=== PATIENT | male | born 1960 | race Caucasian/White ===

== ENCOUNTER 2017-10-06 18:41 | Inpatient (IN) | payer OTHER, MEDICAID ==
[2017-10-07 03:03] LABS: ADD MAN DIFF? NO
[2017-10-07 03:06] LABS: WHITE BLOOD COUNT 11.8 10^3/ul (4.8-10.8)
[2017-10-07 03:06] LABS: ABNORMAL IP MESSAGE 1; BASOPHILS % 0.3 % (0.0-2.0); EOSINOPHILS % 0.2 % (0.0-7.0); HEMATOCRIT 25.1 % (42.0-52.0); HEMOGLOBIN 8.5 g/dl (14.0-18.0); LYMPHOCYTES # 0.9 10^3/ul (0.8-2.9); LYMPHOCYTES % 7.5 % (15.0-51.0); MEAN CORPUSCULAR HEMOGLOBIN 33.5 pg (29.0-33.0); MEAN CORPUSCULAR HGB CONC 33.9 g/dl (32.0-37.0); MEAN CORPUSCULAR VOLUME 98.8 fl (82.0-101.0); MEAN PLATELET VOLUME 11.1 fl (7.4-10.4); MONOCYTE # 1.6 10^3/ul (0.3-0.9); MONOCYTES % 13.1 % (0.0-11.0); NEUTROPHIL # 9.2 10^3/ul (1.6-7.5); NEUTROPHILS % 77.9 % (39.0-77.0); PLATELET COUNT 173 10^3/UL (140-415); POSITIVE DIFF @See below; RED BLOOD COUNT 2.54 10^6/ul (4.70-6.10); RED CELL DISTRIBUTION WIDTH 26.8 % (11.5-14.5)
[2017-10-07 03:27] LABS: ALANINE AMINOTRANSFERASE 34 IU/L (13-69); ALKALINE PHOSPHATASE 262 IU/L (42-121); ANION GAP 19 (8-16); ASPARTATE AMINO TRANSFERASE 147 IU/L (15-46); BILIRUBIN,INDIRECT 2.4 mg/dl (0-1.1); BILIRUBIN,TOTAL 8.1 mg/dl (0.2-1.3); BLOOD UREA NITROGEN 7 mg/dl (7-20); CALCIUM 6.7 mg/dl (8.4-10.2); CARBON DIOXIDE 23 mmol/L (21-31); CHLORIDE 100 mmol/L (97-110); CREATININE 1.15 mg/dl (0.61-1.24); GLUCOSE 116 mg/dl (70-220); LIPASE 131 U/L (23-300); POTASSIUM 3.2 mmol/L (3.5-5.1); SODIUM 139 mmol/L (135-144)
[2017-10-07 03:28] LABS: INR 1.57; PROTIME 19.1 Sec (11.9-14.9); PT RATIO 1.5
[2017-10-07 03:33] LABS: PARTIAL THROMBOPLASTIN TIME 36.5 Sec (25.0-35.0)
[2017-10-07 03:39] LABS: TROPONIN-I < 0.012 ng/ml (0.00-0.12)
[2017-10-07] MEDS ORDERED: ALBUTEROL/IPRATROPIUM (NEB) 3 ML AMP HHN (07:00)
[2017-10-07] MEDS: POTASSIUM CHLORIDE (SR) 20 MEQ TAB PO (07:45)
[2017-10-07 08:42] LABS: IRON 27 ug/dl (35-150)
[2017-10-07 08:51] LABS: % IRON SATURATION 14 % SAT (22-52); TOTAL IRON BINDING CAPACITY 197 ug/dl (241-421)
[2017-10-07] MEDS: PROPRANOLOL 10 MG TAB PO ×3 (09:00→13:00)
[2017-10-07] MEDS: FUROSEMIDE 20 MG INJ IV (09:00)
[2017-10-07] MEDS: LIDOCAINE 1% (MPF) 5 ML VIAL (10:03)
[2017-10-07] MEDS: CEFTRIAXONE 1 GM/50 ML (PMX) 50 ML IVPB ×2 (10:33→20:30)
[2017-10-07] MEDS: FAMOTIDINE 20 MG INJ IV ×2 (10:37→20:28)
[2017-10-07 15:23] LABS: FERRITIN 59.2 ng/ml (11.1-264.0)
[2017-10-07] MEDS ORDERED: ACETAMINOPHEN 325 MG TAB PO (18:30)
[2017-10-07 19:04] LABS: AMMONIA 82 umol/l (9-30)
[2017-10-07] MEDS: NACL 0.9% 3 ML SYG IV (20:25)
[2017-10-07] MEDS: PROPRANOLOL 20 MG TAB PO (21:00)
[2017-10-07] MEDS ORDERED: POTASSIUM CHLORIDE (SR) 20 MEQ TAB PO (21:39)
[2017-10-07] MEDS: morphine 2 MG INJ IV (21:48)
[2017-10-08] MEDS: LORAZEPAM 2 MG INJ IV ×4 (00:08→15:07)
[2017-10-08] MEDS: morphine 2 MG INJ IV (01:55)
[2017-10-08] MEDS: CHLORDIAZEPOXIDE 25 MG CAP PO ×3 (03:59→21:20)
[2017-10-08] MEDS: NACL 0.9% 3 ML SYG IV (04:00)
[2017-10-08] MEDS: D5W-0.45 NACL + KCL 20 MEQ 1,000 ML IV ×2 (04:00→16:41)
[2017-10-08] MEDS: PANTOPRAZOLE 40 MG INJ IV ×2 (05:03→17:58)
[2017-10-08 06:07] LABS: ADD MAN DIFF? NO
[2017-10-08 06:13] LABS: WHITE BLOOD COUNT 9.6 10^3/ul (4.8-10.8)
[2017-10-08 06:13] LABS: ABNORMAL IP MESSAGE 1; BASOPHIL # 0.1 10^3/ul (0.0-0.1); BASOPHILS % 0.5 % (0.0-2.0); EOSINOPHILS # 0.1 10^3/ul (0.0-0.5); EOSINOPHILS % 1.5 % (0.0-7.0); HEMATOCRIT 22.8 % (42.0-52.0); HEMOGLOBIN 7.7 g/dl (14.0-18.0); LYMPHOCYTES # 1.6 10^3/ul (0.8-2.9); LYMPHOCYTES % 16.6 % (15.0-51.0); MEAN CORPUSCULAR HEMOGLOBIN 33.8 pg (29.0-33.0); MEAN CORPUSCULAR HGB CONC 33.8 g/dl (32.0-37.0); MEAN PLATELET VOLUME 11.5 fl (7.4-10.4); MONOCYTE # 1.1 10^3/ul (0.3-0.9); MONOCYTES % 11.4 % (0.0-11.0); NEUTROPHIL # 6.6 10^3/ul (1.6-7.5); NEUTROPHILS % 69.6 % (39.0-77.0); PLATELET COUNT 148 10^3/UL (140-415); POSITIVE DIFF @See below; RED BLOOD COUNT 2.28 10^6/ul (4.70-6.10); RED CELL DISTRIBUTION WIDTH 25.9 % (11.5-14.5)
[2017-10-08 06:42] LABS: ALANINE AMINOTRANSFERASE 32 IU/L (13-69); ALBUMIN 2.1 g/dl (3.3-4.9); ALBUMIN/GLOBULIN RATIO 0.52; ALKALINE PHOSPHATASE 166 IU/L (42-121); ANION GAP 14 (8-16); ASPARTATE AMINO TRANSFERASE 94 IU/L (15-46); BILIRUBIN,INDIRECT 1.7 mg/dl (0-1.1); BLOOD UREA NITROGEN 13 mg/dl (7-20); CALCIUM 6.3 mg/dl (8.4-10.2); CARBON DIOXIDE 22 mmol/L (21-31); CHLORIDE 102 mmol/L (97-110); CREATININE 1.16 mg/dl (0.61-1.24); GLUCOSE 89 mg/dl (70-220); PHOSPHORUS 2.8 mg/dl (2.5-4.9); SODIUM 135 mmol/L (135-144); TOTAL PROTEIN 6.1 g/dl (6.1-8.1)
[2017-10-08 06:53] LABS: AMMONIA 46 umol/l (9-30)
[2017-10-08 06:56] LABS: MAGNESIUM 0.8 mg/dl (1.7-2.5); POTASSIUM 2.7 mmol/L (3.5-5.1)
[2017-10-08 06:57] LABS: ADD UMIC YES; UR ASCORBIC ACID 40 mg/dL (NEGATIVE); UR BILIRUBIN (Dip) 2+ mg/dL (NEGATIVE); UR BLOOD (Dip) 1+ mg/dL (NEGATIVE); UR CLARITY CLOUDY (CLEAR); UR COLOR RED (YELLOW); UR GLUCOSE (Dip) 1+ mg/dL (NEGATIVE); UR HYALINE CAST FEW /HPF (NONE SEEN); UR KETONES (Dip) NEGATIVE (NEGATIVE); UR LEUKOCYTE ESTERASE (Dip) NEGATIVE Leu/ul (NEGATIVE); UR MUCUS MANY /HPF (NONE SEEN); UR NITRITE (Dip) NEGATIVE (NEGATIVE); UR NONSQUAMOUS EPITHELIAL CELL 5 /HPF (NONE SEEN); UR RBC 6 /HPF (0-5); UR SPECIFIC GRAVITY (Dip) 1.031 (1.003-1.030); UR SQUAMOUS EPITHELIAL CELL FEW /HPF (FEW); UR TOTAL PROTEIN (Dip) 2+ mg/dl (NEGATIVE); UR UROBILINOGEN (Dip) 2+ mg/dL (NEGATIVE); UR WBC 1 /HPF (0-5)
[2017-10-08] MEDS: CEFTRIAXONE 1 GM/50 ML (PMX) 50 ML IVPB ×2 (08:11→21:20)
[2017-10-08] MEDS: SODIUM CHLORIDE 0.45% IVPB ×2 (09:51→14:59)
[2017-10-08] MEDS: POTASSIUM CHLORIDE IVPB ×2 (09:51→14:59)
[2017-10-08] MEDS: PROPRANOLOL 10 MG TAB PO ×3 (10:00→21:00)
[2017-10-08] MEDS: THIAMINE 100 MG TAB PO (10:03)
[2017-10-08] MEDS: FAMOTIDINE 20 MG INJ IV ×2 (10:03→21:20)
[2017-10-08] MEDS: FUROSEMIDE 20 MG INJ IV (10:03)
[2017-10-08] MEDS: MAGNESIUM SULFATE 4 GM/100 ML 100 ML IVPB (10:19)
[2017-10-08 20:18] LABS: AMPHETAMINE/METHAMPHETAMINE Negative (NEGATIVE); BARBITURATES Negative (NEGATIVE); BENZODIAZEPINES Negative (NEGATIVE); CANNABINOIDS Negative (NEGATIVE); COCAINE Negative (NEGATIVE); OPIATES Positive (NEGATIVE)
[2017-10-08 20:30] LABS: OCCULT BLOOD STOOL NEGATIVE (NEGATIVE)
[2017-10-09] MEDS: PANTOPRAZOLE 40 MG INJ IV ×2 (05:21→17:58)
[2017-10-09 06:03] LABS: ADD MAN DIFF? NO
[2017-10-09 06:09] LABS: WHITE BLOOD COUNT 7.4 10^3/ul (4.8-10.8)
[2017-10-09 06:10] LABS: ABNORMAL IP MESSAGE 1; BASOPHIL # 0.1 10^3/ul (0.0-0.1); BASOPHILS % 0.7 % (0.0-2.0); EOSINOPHILS # 0.1 10^3/ul (0.0-0.5); EOSINOPHILS % 1.8 % (0.0-7.0); HEMATOCRIT 23.5 % (42.0-52.0); LYMPHOCYTES # 0.7 10^3/ul (0.8-2.9); LYMPHOCYTES % 9.9 % (15.0-51.0); MEAN CORPUSCULAR HEMOGLOBIN 34.8 pg (29.0-33.0); MEAN CORPUSCULAR VOLUME 102.2 fl (82.0-101.0); MEAN PLATELET VOLUME 11.2 fl (7.4-10.4); MONOCYTE # 1.1 10^3/ul (0.3-0.9); MONOCYTES % 14.9 % (0.0-11.0); NEUTROPHIL # 5.3 10^3/ul (1.6-7.5); NEUTROPHILS % 72.3 % (39.0-77.0); PLATELET COUNT 142 10^3/UL (140-415); POSITIVE DIFF @See below; RED CELL DISTRIBUTION WIDTH 25.7 % (11.5-14.5)
[2017-10-09] MEDS: D5W-0.45 NACL + KCL 20 MEQ 1,000 ML IV ×3 (06:40→19:44)
[2017-10-09 06:54] LABS: ANION GAP 14 (8-16); BLOOD UREA NITROGEN 13 mg/dl (7-20); CARBON DIOXIDE 23 mmol/L (21-31); CHLORIDE 104 mmol/L (97-110); CREATININE 0.96 mg/dl (0.61-1.24); GLUCOSE 91 mg/dl (70-220); MAGNESIUM 1.8 mg/dl (1.7-2.5); SODIUM 138 mmol/L (135-144)
[2017-10-09] MEDS: CEFTRIAXONE 1 GM/50 ML (PMX) 50 ML IVPB ×2 (09:05→21:17)
[2017-10-09] MEDS: PROPRANOLOL 10 MG TAB PO ×3 (09:06→21:15)
[2017-10-09] MEDS: THIAMINE 100 MG TAB PO (09:06)
[2017-10-09] MEDS: FAMOTIDINE 20 MG INJ IV ×2 (09:06→21:17)
[2017-10-09] MEDS: CHLORDIAZEPOXIDE 25 MG CAP PO ×3 (09:06→21:17)
[2017-10-09] MEDS: FUROSEMIDE 20 MG INJ IV (09:06)
[2017-10-09 10:26] LABS: OCCULT BLOOD STOOL NEGATIVE (NEGATIVE)
[2017-10-09] MEDS: MULTIVITAMINS 10 ML, THIAMINE 100 MG, FOLIC ACID 1 MG in SOD CHLORIDE 0.9% 1,000 ML IVPB (11:21)
[2017-10-09] MEDS: LACTULOSE 30ML CUP PO ×2 (13:38→17:58)
[2017-10-09] MEDS: POTASSIUM CHLORIDE (SR) 20 MEQ TAB PO ×2 (13:38→17:58)
[2017-10-09] MEDS: LORAZEPAM 2 MG INJ IV (16:13)
[2017-10-09 19:02] LABS: OCCULT BLOOD STOOL NEGATIVE (NEGATIVE)
[2017-10-10] MEDS: LACTULOSE 30ML CUP PO ×6 (00:27→23:50)
[2017-10-10 05:50] LABS: ADD MAN DIFF? NO
[2017-10-10] MEDS: PANTOPRAZOLE 40 MG INJ IV ×2 (05:53→17:44)
[2017-10-10 06:05] LABS: WHITE BLOOD COUNT 6.2 10^3/ul (4.8-10.8)
[2017-10-10 06:05] LABS: ABNORMAL IP MESSAGE 1; BASOPHIL # 0.1 10^3/ul (0.0-0.1); BASOPHILS % 0.8 % (0.0-2.0); EOSINOPHILS # 0.1 10^3/ul (0.0-0.5); EOSINOPHILS % 2.3 % (0.0-7.0); HEMATOCRIT 23.4 % (42.0-52.0); LYMPHOCYTES # 0.6 10^3/ul (0.8-2.9); LYMPHOCYTES % 10.2 % (15.0-51.0); MEAN CORPUSCULAR HEMOGLOBIN 35.1 pg (29.0-33.0); MEAN CORPUSCULAR HGB CONC 34.2 g/dl (32.0-37.0); MEAN CORPUSCULAR VOLUME 102.6 fl (82.0-101.0); MEAN PLATELET VOLUME 11.3 fl (7.4-10.4); MONOCYTE # 1.1 10^3/ul (0.3-0.9); MONOCYTES % 18.3 % (0.0-11.0); NEUTROPHIL # 4.2 10^3/ul (1.6-7.5); NEUTROPHILS % 67.3 % (39.0-77.0); PLATELET COUNT 145 10^3/UL (140-415); POSITIVE DIFF @See below; RED BLOOD COUNT 2.28 10^6/ul (4.70-6.10); RED CELL DISTRIBUTION WIDTH 25.2 % (11.5-14.5)
[2017-10-10 07:07] LABS: ANION GAP 14 (8-16); BLOOD UREA NITROGEN 10 mg/dl (7-20); CALCIUM 6.1 mg/dl (8.4-10.2); CARBON DIOXIDE 22 mmol/L (21-31); CHLORIDE 108 mmol/L (97-110); CREATININE 0.86 mg/dl (0.61-1.24); GLUCOSE 106 mg/dl (70-220); SODIUM 141 mmol/L (135-144)
[2017-10-10] MEDS: D5W-0.45 NACL + KCL 20 MEQ 1,000 ML IV ×2 (09:20→19:41)
[2017-10-10] MEDS: CEFTRIAXONE 1 GM/50 ML (PMX) 50 ML IVPB ×2 (09:38→21:04)
[2017-10-10] MEDS: THIAMINE 100 MG TAB PO (09:38)
[2017-10-10] MEDS: MULTIVITAMINS 10 ML, THIAMINE 100 MG, FOLIC ACID 1 MG in SOD CHLORIDE 0.9% 1,000 ML IVPB (09:38)
[2017-10-10] MEDS: CHLORDIAZEPOXIDE 25 MG CAP PO ×3 (09:38→21:05)
[2017-10-10] MEDS: FAMOTIDINE 20 MG INJ IV ×2 (09:41→21:04)
[2017-10-10] MEDS: PROPRANOLOL 10 MG TAB PO ×3 (09:41→21:00)
[2017-10-10] MEDS: FUROSEMIDE 20 MG INJ IV (09:41)
[2017-10-10] MEDS: LORAZEPAM 2 MG INJ IV ×2 (11:08→15:22)
[2017-10-10] MEDS: INFLUENZA VIRUS VACCINE 0.5 ML SYG IM* (13:08)
[2017-10-10 16:06] LABS: RETICULOCYTE COUNT # 0.114 X10^6 (0.020-0.110); RETICULOCYTE COUNT % 4.3 % (0.5-1.5)
[2017-10-10 16:06] LABS: RETICULOCYTE RBC 2.68
[2017-10-10 17:15] LABS: FERRITIN 70.2 ng/ml (11.1-264.0)
[2017-10-10 17:47] LABS: FOLATE > 20.0 ng/ml (2.8-20.0)
[2017-10-10] MEDS: RIFAXIMIN 550 MG TAB PO (21:05)
[2017-10-11] MEDS: PANTOPRAZOLE 40 MG INJ IV ×2 (05:28→17:28)
[2017-10-11] MEDS: LACTULOSE 30ML CUP PO ×3 (05:28→17:28)
[2017-10-11 07:11] LABS: OCCULT BLOOD STOOL NEGATIVE (NEGATIVE)
[2017-10-11] MEDS: PROPRANOLOL 10 MG TAB PO ×3 (08:38→21:00)
[2017-10-11] MEDS: RIFAXIMIN 550 MG TAB PO ×2 (08:38→21:53)
[2017-10-11] MEDS: CHLORDIAZEPOXIDE 25 MG CAP PO ×3 (08:38→21:53)
[2017-10-11] MEDS: THIAMINE 100 MG TAB PO (08:38)
[2017-10-11] MEDS: FUROSEMIDE 20 MG INJ IV (08:39)
[2017-10-11] MEDS: CEFTRIAXONE 1 GM/50 ML (PMX) 50 ML IVPB ×2 (08:47→21:50)
[2017-10-11] MEDS: MULTIVITAMINS 10 ML, THIAMINE 100 MG, FOLIC ACID 1 MG in SOD CHLORIDE 0.9% 1,000 ML IVPB (10:03)
[2017-10-11] MEDS: D5W-0.45 NACL + KCL 20 MEQ 1,000 ML IV ×2 (12:00→19:23)
[2017-10-11] MEDS ORDERED: POTASSIUM CHLORIDE 30 MEQ in DEXTROSE 5% 250 ML IVPB (18:00)
[2017-10-11] MEDS: POTASSIUM CHLORIDE 50 ML IVPB ×3 (19:45→23:40)
[2017-10-11] MEDS: LORAZEPAM 2 MG INJ IV (21:54)
[2017-10-12] MEDS: D5W-0.45 NACL + KCL 20 MEQ 1,000 ML IV ×2 (01:20→14:40)
[2017-10-12] MEDS: LORAZEPAM 2 MG INJ IV ×2 (03:51→12:17)
[2017-10-12] MEDS: LACTULOSE 30ML CUP PO ×5 (06:00→23:15)
[2017-10-12] MEDS: PANTOPRAZOLE 40 MG INJ IV ×2 (06:16→18:17)
[2017-10-12 06:30] LABS: ADD MAN DIFF? NO
[2017-10-12 06:40] LABS: WHITE BLOOD COUNT 8.4 10^3/ul (4.8-10.8)
[2017-10-12 06:40] LABS: ABNORMAL IP MESSAGE 1; BASOPHIL # 0.1 10^3/ul (0.0-0.1); BASOPHILS % 0.7 % (0.0-2.0); EOSINOPHILS # 0.2 10^3/ul (0.0-0.5); EOSINOPHILS % 1.9 % (0.0-7.0); HEMATOCRIT 26.3 % (42.0-52.0); HEMOGLOBIN 8.5 g/dl (14.0-18.0); LYMPHOCYTES # 0.9 10^3/ul (0.8-2.9); LYMPHOCYTES % 10.6 % (15.0-51.0); MEAN CORPUSCULAR HEMOGLOBIN 34.1 pg (29.0-33.0); MEAN CORPUSCULAR HGB CONC 32.3 g/dl (32.0-37.0); MEAN CORPUSCULAR VOLUME 105.6 fl (82.0-101.0); MEAN PLATELET VOLUME 10.7 fl (7.4-10.4); MONOCYTE # 1.4 10^3/ul (0.3-0.9); MONOCYTES % 16.7 % (0.0-11.0); NEUTROPHIL # 5.8 10^3/ul (1.6-7.5); NEUTROPHILS % 69.5 % (39.0-77.0); PLATELET COUNT 189 10^3/UL (140-415); POSITIVE DIFF @See below; RED BLOOD COUNT 2.49 10^6/ul (4.70-6.10); RED CELL DISTRIBUTION WIDTH 24.6 % (11.5-14.5)
[2017-10-12 07:19] LABS: ANION GAP 12 (8-16); BLOOD UREA NITROGEN 11 mg/dl (7-20); CALCIUM 6.7 mg/dl (8.4-10.2); CARBON DIOXIDE 20 mmol/L (21-31); CHLORIDE 112 mmol/L (97-110); CREATININE 0.92 mg/dl (0.61-1.24); GLUCOSE 113 mg/dl (70-220); MAGNESIUM 1.5 mg/dl (1.7-2.5); POTASSIUM 3.2 mmol/L (3.5-5.1); SODIUM 141 mmol/L (135-144)
[2017-10-12 07:40] LABS: AMMONIA 49 umol/l (9-30)
[2017-10-12] MEDS: MULTIVITAMINS 10 ML, THIAMINE 100 MG, FOLIC ACID 1 MG in SOD CHLORIDE 0.9% 1,000 ML IVPB (09:03)
[2017-10-12] MEDS: RIFAXIMIN 550 MG TAB PO ×2 (09:04→20:42)
[2017-10-12] MEDS: PROPRANOLOL 10 MG TAB PO ×3 (09:04→20:43)
[2017-10-12] MEDS: THIAMINE 100 MG TAB PO (09:04)
[2017-10-12] MEDS: CHLORDIAZEPOXIDE 25 MG CAP PO ×3 (09:04→20:43)
[2017-10-12] MEDS: FUROSEMIDE 20 MG INJ IV (09:05)
[2017-10-12] MEDS: CEFTRIAXONE 1 GM/50 ML (PMX) 50 ML IVPB ×2 (09:05→22:09)
[2017-10-12] MEDS ORDERED: POTASSIUM CHLORIDE 40 MEQ in SOD CHLORIDE 0.9% 150 ML IVPB (16:00)
[2017-10-12] MEDS: POTASSIUM CHLORIDE 50 ML IVPB ×4 (16:40→20:49)
[2017-10-13] MEDS: D5W-0.45 NACL + KCL 20 MEQ 1,000 ML IV ×2 (01:14→04:00)
[2017-10-13] MEDS: PANTOPRAZOLE 40 MG INJ IV ×2 (05:07→19:17)
[2017-10-13] MEDS: LACTULOSE 30ML CUP PO ×3 (05:07→19:17)
[2017-10-13] MEDS: CEFTRIAXONE 1 GM/50 ML (PMX) 50 ML IVPB ×2 (08:56→20:45)
[2017-10-13] MEDS: SPIRONOLACTONE 50 MG TAB NGT (08:56)
[2017-10-13] MEDS: FUROSEMIDE 20 MG INJ IV (08:56)
[2017-10-13] MEDS: FUROSEMIDE 20 MG TAB GTB (08:57)
[2017-10-13] MEDS: THIAMINE 100 MG TAB PO (08:57)
[2017-10-13] MEDS: RIFAXIMIN 550 MG TAB PO ×2 (08:57→20:53)
[2017-10-13] MEDS: PROPRANOLOL 10 MG TAB PO ×3 (08:57→20:53)
[2017-10-13] MEDS: CHLORDIAZEPOXIDE 25 MG CAP PO ×3 (08:58→20:55)
[2017-10-13] MEDS: MULTIVITAMINS 10 ML, THIAMINE 100 MG, FOLIC ACID 1 MG in SOD CHLORIDE 0.9% 1,000 ML IVPB (08:59)
[2017-10-13 10:01] LABS: ADD MAN DIFF? NO
[2017-10-13 10:05] LABS: ABNORMAL IP MESSAGE 1; BASOPHIL # 0.1 10^3/ul (0.0-0.1); BASOPHILS % 0.6 % (0.0-2.0); EOSINOPHILS # 0.1 10^3/ul (0.0-0.5); EOSINOPHILS % 1.4 % (0.0-7.0); HEMATOCRIT 26.5 % (42.0-52.0); HEMOGLOBIN 8.7 g/dl (14.0-18.0); LYMPHOCYTES # 1.1 10^3/ul (0.8-2.9); LYMPHOCYTES % 11.7 % (15.0-51.0); MEAN CORPUSCULAR HEMOGLOBIN 33.9 pg (29.0-33.0); MEAN CORPUSCULAR HGB CONC 32.8 g/dl (32.0-37.0); MEAN CORPUSCULAR VOLUME 103.1 fl (82.0-101.0); MEAN PLATELET VOLUME 10.7 fl (7.4-10.4); MONOCYTE # 1.3 10^3/ul (0.3-0.9); NEUTROPHIL # 6.7 10^3/ul (1.6-7.5); NEUTROPHILS % 71.6 % (39.0-77.0); PLATELET COUNT 193 10^3/UL (140-415); POSITIVE DIFF @See below; RED BLOOD COUNT 2.57 10^6/ul (4.70-6.10); RED CELL DISTRIBUTION WIDTH 23.9 % (11.5-14.5)
[2017-10-13 10:05] LABS: WHITE BLOOD COUNT 9.3 10^3/ul (4.8-10.8)
[2017-10-13 10:25] LABS: AMMONIA 23 umol/l (9-30)
[2017-10-13 10:27] LABS: ANION GAP 13 (8-16); BLOOD UREA NITROGEN 13 mg/dl (7-20); CALCIUM 7.2 mg/dl (8.4-10.2); CARBON DIOXIDE 19 mmol/L (21-31); CHLORIDE 114 mmol/L (97-110); CREATININE 0.97 mg/dl (0.61-1.24); GLUCOSE 137 mg/dl (70-220); POTASSIUM 3.1 mmol/L (3.5-5.1); SODIUM 143 mmol/L (135-144)
[2017-10-13] MEDS ORDERED: POTASSIUM CHLORIDE 30 MEQ in SOD CHLORIDE 0.9% 150 ML IVPB (12:00)
[2017-10-13] MEDS: D5W-0.45 NACL + KCL 40 MEQ 1,000 ML IV (12:00)
[2017-10-13] MEDS: POTASSIUM CHLORIDE 50 ML IVPB ×3 (12:22→15:47)
[2017-10-13] MEDS ORDERED: COLLAGENASE 30 GM TUBE TOP (13:00)
[2017-10-13] MEDS: MAGNESIUM SULFATE 4 GM/100 ML 100 ML IVPB (15:48)
[2017-10-14] MEDS: D5W-0.45 NACL + KCL 40 MEQ 1,000 ML IV ×3 (00:02→21:20)
[2017-10-14] MEDS: PANTOPRAZOLE 40 MG INJ IV ×2 (06:13→18:25)
[2017-10-14] MEDS: LACTULOSE 30ML CUP PO ×4 (06:13→18:25)
[2017-10-14 06:19] LABS: ADD MAN DIFF? NO
[2017-10-14 06:23] LABS: WHITE BLOOD COUNT 8.7 10^3/ul (4.8-10.8)
[2017-10-14 06:23] LABS: ABNORMAL IP MESSAGE 1; BASOPHIL # 0.1 10^3/ul (0.0-0.1); BASOPHILS % 0.7 % (0.0-2.0); EOSINOPHILS # 0.1 10^3/ul (0.0-0.5); EOSINOPHILS % 1.1 % (0.0-7.0); HEMATOCRIT 26.1 % (42.0-52.0); HEMOGLOBIN 8.7 g/dl (14.0-18.0); LYMPHOCYTES # 0.9 10^3/ul (0.8-2.9); LYMPHOCYTES % 10.8 % (15.0-51.0); MEAN CORPUSCULAR HEMOGLOBIN 34.1 pg (29.0-33.0); MEAN CORPUSCULAR HGB CONC 33.3 g/dl (32.0-37.0); MEAN CORPUSCULAR VOLUME 102.4 fl (82.0-101.0); MEAN PLATELET VOLUME 10.3 fl (7.4-10.4); MONOCYTE # 1.4 10^3/ul (0.3-0.9); MONOCYTES % 15.7 % (0.0-11.0); NEUTROPHIL # 6.2 10^3/ul (1.6-7.5); NEUTROPHILS % 70.9 % (39.0-77.0); PLATELET COUNT 196 10^3/UL (140-415); POSITIVE DIFF @See below; RED BLOOD COUNT 2.55 10^6/ul (4.70-6.10); RED CELL DISTRIBUTION WIDTH 23.5 % (11.5-14.5)
[2017-10-14 06:48] LABS: AMMONIA 22 umol/l (9-30)
[2017-10-14 08:55] LABS: ANION GAP 14 (8-16); BLOOD UREA NITROGEN 13 mg/dl (7-20); CALCIUM 7.6 mg/dl (8.4-10.2); CARBON DIOXIDE 18 mmol/L (21-31); CHLORIDE 118 mmol/L (97-110); CREATININE 0.87 mg/dl (0.61-1.24); GLUCOSE 122 mg/dl (70-220); MAGNESIUM 2.4 mg/dl (1.7-2.5); POTASSIUM 3.5 mmol/L (3.5-5.1); SODIUM 146 mmol/L (135-144)
[2017-10-14] MEDS: MULTIVITAMINS 10 ML, THIAMINE 100 MG, FOLIC ACID 1 MG in SOD CHLORIDE 0.9% 1,000 ML IVPB ×2 (09:00→18:25)
[2017-10-14] MEDS: FUROSEMIDE 20 MG TAB GTB (09:45)
[2017-10-14] MEDS: CEFTRIAXONE 1 GM/50 ML (PMX) 50 ML IVPB (09:46)
[2017-10-14] MEDS: FUROSEMIDE 20 MG INJ IV (09:46)
[2017-10-14] MEDS: SPIRONOLACTONE 50 MG TAB NGT (09:47)
[2017-10-14] MEDS: THIAMINE 100 MG TAB PO (09:48)
[2017-10-14] MEDS: PROPRANOLOL 10 MG TAB PO ×3 (09:48→21:10)
[2017-10-14] MEDS: RIFAXIMIN 550 MG TAB PO ×2 (09:48→21:10)
[2017-10-14] MEDS: CHLORDIAZEPOXIDE 25 MG CAP PO ×2 (09:49→12:26)
[2017-10-14] MEDS: ONDANSETRON 4 MG INJ IV (14:54)
[2017-10-14] MEDS ORDERED: VITAMIN A & D 5 GM OINT PACKET TOP (21:19)
[2017-10-15] MEDS: LACTULOSE 30ML CUP PO ×4 (00:10→17:12)
[2017-10-15] MEDS: D5W-0.45 NACL + KCL 40 MEQ 1,000 ML IV (02:49)
[2017-10-15] MEDS: PANTOPRAZOLE 40 MG INJ IV ×2 (05:42→17:12)
[2017-10-15 05:59] LABS: ADD MAN DIFF? NO
[2017-10-15 06:08] LABS: ABNORMAL IP MESSAGE 1; BASOPHILS % 0.4 % (0.0-2.0); EOSINOPHILS # 0.1 10^3/ul (0.0-0.5); EOSINOPHILS % 0.7 % (0.0-7.0); HEMATOCRIT 24.7 % (42.0-52.0); LYMPHOCYTES # 1.3 10^3/ul (0.8-2.9); MEAN CORPUSCULAR HEMOGLOBIN 34.5 pg (29.0-33.0); MEAN CORPUSCULAR HGB CONC 32.4 g/dl (32.0-37.0); MEAN CORPUSCULAR VOLUME 106.5 fl (82.0-101.0); MEAN PLATELET VOLUME 11.2 fl (7.4-10.4); MONOCYTE # 1.4 10^3/ul (0.3-0.9); MONOCYTES % 13.9 % (0.0-11.0); NEUTROPHILS % 71.1 % (39.0-77.0); PLATELET COUNT 202 10^3/UL (140-415); POSITIVE DIFF @See below; RED BLOOD COUNT 2.32 10^6/ul (4.70-6.10); RED CELL DISTRIBUTION WIDTH 22.9 % (11.5-14.5)
[2017-10-15 06:08] LABS: WHITE BLOOD COUNT 9.8 10^3/ul (4.8-10.8)
[2017-10-15 06:19] LABS: INR 1.61; PROTIME 19.5 Sec (11.9-14.9); PT RATIO 1.5
[2017-10-15 06:20] LABS: PARTIAL THROMBOPLASTIN TIME 41.5 Sec (25.0-35.0)
[2017-10-15 06:49] LABS: ANION GAP 13 (8-16); BLOOD UREA NITROGEN 13 mg/dl (7-20); CALCIUM 7.6 mg/dl (8.4-10.2); CARBON DIOXIDE 17 mmol/L (21-31); CHLORIDE 121 mmol/L (97-110); CREATININE 0.85 mg/dl (0.61-1.24); GLUCOSE 273 mg/dl (70-220); POTASSIUM 4.7 mmol/L (3.5-5.1); SODIUM 146 mmol/L (135-144)
[2017-10-15] MEDS: MULTIVITAMINS 10 ML, THIAMINE 100 MG, FOLIC ACID 1 MG in SOD CHLORIDE 0.9% 1,000 ML IVPB (09:18)
[2017-10-15] MEDS: FUROSEMIDE 20 MG INJ IV (09:19)
[2017-10-15] MEDS: RIFAXIMIN 550 MG TAB PO ×2 (09:19→21:00)
[2017-10-15] MEDS: THIAMINE 100 MG TAB PO (09:19)
[2017-10-15] MEDS: PROPRANOLOL 10 MG TAB PO ×3 (09:19→21:00)
[2017-10-15] MEDS: SPIRONOLACTONE 50 MG TAB NGT (09:20)
[2017-10-16] MEDS: D5W-0.45 NACL + KCL 40 MEQ 1,000 ML IV (03:18)
[2017-10-16] MEDS: LACTULOSE 30ML CUP PO ×4 (06:00→17:08)
[2017-10-16] MEDS: PANTOPRAZOLE 40 MG INJ IV ×2 (06:00→17:08)
[2017-10-16] MEDS ORDERED: SUCCINYLCHOLINE CHLORIDE 100 MG/5 ML SYG IV (07:00)
[2017-10-16] MEDS ORDERED: ETOMIDATE 20 MG INJ (07:00)
[2017-10-16 08:53] LABS: ABNORMAL IP MESSAGE 1; HEMATOCRIT 33.2 % (42.0-52.0); HEMOGLOBIN 10.4 g/dl (14.0-18.0); MEAN CORPUSCULAR HGB CONC 31.3 g/dl (32.0-37.0); MEAN CORPUSCULAR VOLUME 108.5 fl (82.0-101.0); MEAN PLATELET VOLUME 11.2 fl (7.4-10.4); NUCLEATED RED BLOOD CELLS% 0.1 /100WBC (0.0-0.0); PLATELET COUNT 379 10^3/UL (140-415); POSITIVE DIFF @See below; RED BLOOD COUNT 3.06 10^6/ul (4.70-6.10); RED CELL DISTRIBUTION WIDTH 22.3 % (11.5-14.5)
[2017-10-16 08:53] LABS: WHITE BLOOD COUNT 16.7 10^3/ul (4.8-10.8)
[2017-10-16 08:59] LABS: ADD MAN DIFF? YES
[2017-10-16 09:14] LABS: AMMONIA 50 umol/l (9-30)
[2017-10-16 09:15] LABS: ANION GAP 15 (8-16); BLOOD UREA NITROGEN 22 mg/dl (7-20); CALCIUM 8.4 mg/dl (8.4-10.2); CARBON DIOXIDE 17 mmol/L (21-31); CHLORIDE 121 mmol/L (97-110); GLUCOSE 152 mg/dl (70-220); MAGNESIUM 1.9 mg/dl (1.7-2.5); POTASSIUM 4.1 mmol/L (3.5-5.1); SODIUM 149 mmol/L (135-144)
[2017-10-16 09:54] LABS: AADO2 Arterial 602.8 mmHg (7.0-24.0); Allen Test ACCEPTAB; Arterial Base Excess -12.3 mmol/L (-3.0-3); Arterial HCO3 15.8 mmol/L (22.0-26.0); Arterial pCO2 44.1 mmhg (35-45); MODE MASK - NRB; Site Right Radial
[2017-10-16 09:59] LABS: Allen Test ACCEPTAB; Arterial Base Excess -12.4 mmol/L (-3.0-3); Arterial Blood Gas Oxygen Sat 91.5 mmHG (95.0-98.0); Arterial COHb 0.4 % (0.0-3.0); Arterial Fraction of Oxyhgb 90.8 % (93.0-99.0); Arterial HCO3 16.3 mmol/L (22.0-26.0); Arterial MetHb 0.4 % (0.0-1.5); Arterial Total Hemglobin 11.3 g/dl (12.0-18.0); Arterial pCO2 49.3 mmhg (35-45); MODE MASK - NRB; Site Right Radial
[2017-10-16 10:12] LABS: ANISOCYTOSIS 2+ (0-0); BAND NEUTROPHILS % (M) 30 % (0-4); BASOPHIL #M 0.3 10^3/ul (0.0-0.0); BASOPHILS % (M) 2 % (0-2); LYMPHOCYTES #M 1.6 10^3/ul (0.8-2.9); LYMPHOCYTES % (M) 10 % (15-51); MONOCYTE #M 0.5 10^3/ul (0.3-0.9); MONOCYTES % (M) 3 % (0-11); PLATELET ESTIMATE NORMAL; POIKILOCYTOSIS 2+ (0-0); POLYCHROMASIA 1+ (0-0); REACTIVE LYMPHOCYTES #M 0.1 10^3/ul (0.0-0.0); REACTIVE LYMPHOCYTES% (M) 1 % (0-0); SEG NEUT #M 9.9 10^3/ul (1.7-7.5); SEGMENTED NEUTROPHILS (M) % 54 % (39-77); TARGET CELLS 1+ (0-0)
[2017-10-16] MEDS: ALBUMIN HUMAN 25% 100 ML IV ×2 (11:00→15:50)
[2017-10-16] MEDS: SODIUM BICARBONATE (IV ADD) 100 MEQ in DEXTROSE 5% 1,000 ML IV (11:19)
[2017-10-16] MEDS: PIPER-TAZO 3.375 GM IV (PMX) 100 ML IVPB ×2 (12:21→17:08)
[2017-10-16] MEDS: RIFAXIMIN 550 MG TAB PO ×2 (12:24→21:57)
[2017-10-16] MEDS: THIAMINE 100 MG TAB PO (12:24)
[2017-10-16 12:51] LABS: AADO2 Arterial 615.2 mmHg (7.0-24.0); Allen Test ACCEPTAB; Arterial Blood Gas Oxygen Sat 91.2 mmHG (95.0-98.0); Arterial COHb 0.3 % (0.0-3.0); Arterial Fraction of Oxyhgb 90.8 % (93.0-99.0); Arterial HCO3 14.3 mmol/L (22.0-26.0); Arterial MetHb 0.1 % (0.0-1.5); Arterial Total Hemglobin 10.6 g/dl (12.0-18.0); MODE VENT - AC; Site Left Radial
[2017-10-16] MEDS: SOD CHLORIDE 0.9% 1,000 ML IV (12:51)
[2017-10-16] MEDS ORDERED: NORepinephrine 8MG/250 ML (PMX 250 ML IV ×2 (13:00)
[2017-10-16] MEDS: PROPOFOL 100 ML IV ×2 (13:30→19:37)
[2017-10-16] MEDS: LIDOCAINE 1% (MPF) 5 ML VIAL SC (14:40)
[2017-10-16] MEDS: FUROSEMIDE 20 MG INJ IV (17:32)
[2017-10-16 17:38] LABS: ANION GAP 18 (8-16); BLOOD UREA NITROGEN 23 mg/dl (7-20); CALCIUM 8.2 mg/dl (8.4-10.2); CARBON DIOXIDE 15 mmol/L (21-31); CHLORIDE 118 mmol/L (97-110); CREATININE 2.19 mg/dl (0.61-1.24); GLUCOSE 151 mg/dl (70-220); POTASSIUM 3.5 mmol/L (3.5-5.1); SODIUM 147 mmol/L (135-144)
[2017-10-16] MEDS: POTASSIUM CHLORIDE 50 ML IVPB ×2 (19:11→20:47)
[2017-10-16] MEDS: MULTIVITAMINS 10 ML, THIAMINE 100 MG, FOLIC ACID 1 MG in SOD CHLORIDE 0.9% 1,000 ML IVPB (21:57)
[2017-10-17] MEDS: PIPER-TAZO 3.375 GM IV (PMX) 100 ML IVPB ×4 (00:36→18:07)
[2017-10-17] MEDS: LACTULOSE 30ML CUP PO ×4 (00:36→18:06)
[2017-10-17] MEDS: ALBUMIN HUMAN 25% 100 ML IV ×2 (02:38→16:57)
[2017-10-17 04:52] LABS: WHITE BLOOD COUNT 18.5 10^3/ul (4.8-10.8)
[2017-10-17 04:52] LABS: ABNORMAL IP MESSAGE 1; HEMATOCRIT 24.3 % (42.0-52.0); MEAN CORPUSCULAR HEMOGLOBIN 34.3 pg (29.0-33.0); MEAN CORPUSCULAR HGB CONC 32.9 g/dl (32.0-37.0); MEAN CORPUSCULAR VOLUME 104.3 fl (82.0-101.0); NUCLEATED RED BLOOD CELLS% 0.1 /100WBC (0.0-0.0); PLATELET COUNT 259 10^3/UL (140-415); POSITIVE DIFF @See below; RED BLOOD COUNT 2.33 10^6/ul (4.70-6.10); RED CELL DISTRIBUTION WIDTH 22.3 % (11.5-14.5)
[2017-10-17 04:58] LABS: ADD MAN DIFF? YES
[2017-10-17 05:23] LABS: ALANINE AMINOTRANSFERASE 35 IU/L (13-69); ALBUMIN 2.8 g/dl (3.3-4.9); ALBUMIN/GLOBULIN RATIO 0.66; ALKALINE PHOSPHATASE 129 IU/L (42-121); ANION GAP 18 (8-16); ASPARTATE AMINO TRANSFERASE 114 IU/L (15-46); BILIRUBIN,INDIRECT 1.9 mg/dl (0-1.1); BILIRUBIN,TOTAL 9.4 mg/dl (0.2-1.3); BLOOD UREA NITROGEN 26 mg/dl (7-20); CALCIUM 8.1 mg/dl (8.4-10.2); CARBON DIOXIDE 16 mmol/L (21-31); CHLORIDE 118 mmol/L (97-110); CREATININE 2.67 mg/dl (0.61-1.24); GLUCOSE 119 mg/dl (70-220); POTASSIUM 3.6 mmol/L (3.5-5.1); SODIUM 148 mmol/L (135-144)
[2017-10-17] MEDS: PANTOPRAZOLE 40 MG INJ IV ×2 (06:26→18:06)
[2017-10-17 08:01] LABS: ANISOCYTOSIS 1+ (0-0); BAND NEUTROPHILS #M 5.7 10^3/ul (0.0-0.6); BAND NEUTROPHILS % (M) 31 % (0-4); BURR CELLS 2+ (0-0); ERYTHROBLAST% (NRBC) (M) 1 % (0-0); GIANT THROMBO% (M) 2 % (0-0); LYMPHOCYTES #M 1.1 10^3/ul (0.8-2.9); LYMPHOCYTES % (M) 6 % (15-51); MONOCYTES % (M) 11 % (0-11); PLATELET ESTIMATE NORMAL; PLATELET MORPHOLOGY COMMENT @See below; POIKILOCYTOSIS 1+ (0-0); POLYCHROMASIA 1+ (0-0); SEG NEUT #M 10.9 10^3/ul (1.7-7.5); SEGMENTED NEUTROPHILS (M) % 53 % (39-77); TARGET CELLS 2+ (0-0)
[2017-10-17] MEDS: SODIUM BICARBONATE (IV ADD) 100 MEQ in DEXTROSE 5% 1,000 ML IV ×3 (08:08→20:09)
[2017-10-17] MEDS: POTASSIUM CHLORIDE 50 ML IVPB ×2 (08:21→09:54)
[2017-10-17 08:27] LABS: ADD UMIC YES; UR ASCORBIC ACID 40 mg/dL (NEGATIVE); UR BILIRUBIN (Dip) 2+ mg/dL (NEGATIVE); UR BLOOD (Dip) 2+ mg/dL (NEGATIVE); UR CLARITY CLOUDY (CLEAR); UR COLOR AMBER (YELLOW); UR GLUCOSE (Dip) 1+ mg/dL (NEGATIVE); UR HYALINE CAST FEW /HPF (NONE SEEN); UR KETONES (Dip) NEGATIVE (NEGATIVE); UR LEUKOCYTE ESTERASE (Dip) NEGATIVE Leu/ul (NEGATIVE); UR NITRITE (Dip) NEGATIVE (NEGATIVE); UR RBC 4 /HPF (0-5); UR SPECIFIC GRAVITY (Dip) 1.025 (1.003-1.030); UR TOTAL PROTEIN (Dip) 1+ mg/dl (NEGATIVE); UR UROBILINOGEN (Dip) 2+ mg/dL (NEGATIVE); UR WBC 3 /HPF (0-5)
[2017-10-17] MEDS: RIFAXIMIN 550 MG TAB PO ×2 (10:14→21:00)
[2017-10-17] MEDS: THIAMINE 100 MG TAB PO (10:14)
[2017-10-17] MEDS: PROPOFOL 100 ML IV (12:42)
[2017-10-17 14:43] LABS: AADO2 Arterial 119.1 mmHg (7.0-24.0); Allen Test ACCEPTAB; Arterial Base Excess -8.3 mmol/L (-3.0-3); Arterial Blood Gas Oxygen Sat 92.7 mmHG (95.0-98.0); Arterial COHb 0.3 % (0.0-3.0); Arterial Fraction of Oxyhgb 92.2 % (93.0-99.0); Arterial HCO3 15.2 mmol/L (22.0-26.0); Arterial MetHb 0.2 % (0.0-1.5); Arterial pCO2 24.8 mmhg (35-45); Blood Gas PS 10; MODE VENT - CPAP; Site Right Radial
[2017-10-17 14:57] LABS: ANION GAP 21 (8-16); BLOOD UREA NITROGEN 31 mg/dl (7-20); CALCIUM 8.2 mg/dl (8.4-10.2); CARBON DIOXIDE 16 mmol/L (21-31); CHLORIDE 113 mmol/L (97-110); CREATININE 3.22 mg/dl (0.61-1.24); GLUCOSE 150 mg/dl (70-220); POTASSIUM 3.5 mmol/L (3.5-5.1); SODIUM 146 mmol/L (135-144)
[2017-10-17] MEDS: LINEZOLID 600 MG/D5W (PMX) 300 ML IVPB (21:18)
[2017-10-18] MEDS: LACTULOSE 30ML CUP PO ×5 (00:38→23:12)
[2017-10-18] MEDS: PIPER-TAZO 3.375 GM IV (PMX) 100 ML IVPB ×5 (00:50→23:12)
[2017-10-18] MEDS: PANTOPRAZOLE 40 MG INJ IV ×2 (05:32→18:10)
[2017-10-18] MEDS: PROPOFOL 100 ML IV ×3 (05:41→19:01)
[2017-10-18 05:56] LABS: ANION GAP 16 (8-16); BLOOD UREA NITROGEN 28 mg/dl (7-20); CALCIUM 7.9 mg/dl (8.4-10.2); CARBON DIOXIDE 23 mmol/L (21-31); CHLORIDE 103 mmol/L (97-110); CREATININE 3.02 mg/dl (0.61-1.24); GLUCOSE 157 mg/dl (70-220); SODIUM 139 mmol/L (135-144)
[2017-10-18 05:59] LABS: POTASSIUM 2.6 mmol/L (3.5-5.1)
[2017-10-18] MEDS: POTASSIUM CHLORIDE 50 ML IVPB ×6 (06:04→22:33)
[2017-10-18] MEDS: SODIUM BICARBONATE (IV ADD) 100 MEQ in DEXTROSE 5% 1,000 ML IV (07:48)
[2017-10-18] MEDS: THIAMINE 100 MG TAB PO (09:26)
[2017-10-18] MEDS: RIFAXIMIN 550 MG TAB PO ×2 (09:26→20:11)
[2017-10-18] MEDS: LINEZOLID 600 MG/D5W (PMX) 300 ML IVPB ×2 (10:35→20:07)
[2017-10-18] MEDS: ALBUMIN HUMAN 25% 100 ML IV (11:16)
[2017-10-18 12:24] LABS: HAAIG REFLEX REFLEX FILED
[2017-10-18 13:11] LABS: HEPATITIS B SURFACE ANTIGEN NEGATIVE (NEGATIVE)
[2017-10-18 13:29] LABS: HEPATITIS B CORE ANTIBODY NEGATIVE (NEGATIVE); HEPATITIS C VIRAL ANTIBODY NEGATIVE (NEGATIVE)
[2017-10-18] MEDS: MUPIROCIN 2% 22 GM OINT TOP ×2 (14:07→20:12)
[2017-10-18 16:55] LABS: POTASSIUM 3.2 mmol/L (3.5-5.1)
[2017-10-18 18:03] LABS: HEPATITIS B SURFACE ANTIGEN NEGATIVE (NEGATIVE)
[2017-10-18 18:20] LABS: HEPATITIS B CORE ANTIBODY NEGATIVE (NEGATIVE)
[2017-10-18] MEDS: CASPOFUNGIN 70 MG in SOD CHLORIDE 0.9% 250 ML IVPB (19:01)
[2017-10-19] MEDS: PROPOFOL 100 ML IV ×4 (01:30→15:33)
[2017-10-19] MEDS: PIPER-TAZO 3.375 GM IV (PMX) 100 ML IVPB (05:55)
[2017-10-19] MEDS: LACTULOSE 30ML CUP PO ×4 (05:55→23:27)
[2017-10-19] MEDS: PANTOPRAZOLE 40 MG INJ IV ×2 (05:55→17:14)
[2017-10-19 06:01] LABS: HEMATOCRIT 23.4 % (42.0-52.0); HEMOGLOBIN 7.8 g/dl (14.0-18.0); MEAN CORPUSCULAR HEMOGLOBIN 33.8 pg (29.0-33.0); MEAN CORPUSCULAR HGB CONC 33.3 g/dl (32.0-37.0); MEAN CORPUSCULAR VOLUME 101.3 fl (82.0-101.0); MEAN PLATELET VOLUME 11.3 fl (7.4-10.4); PLATELET COUNT 153 10^3/UL (140-415); POSITIVE DIFF @See below; RED BLOOD COUNT 2.31 10^6/ul (4.70-6.10); RED CELL DISTRIBUTION WIDTH 21.6 % (11.5-14.5)
[2017-10-19 06:01] LABS: WHITE BLOOD COUNT 16.4 10^3/ul (4.8-10.8)
[2017-10-19 06:08] LABS: ADD MAN DIFF? YES
[2017-10-19 06:41] LABS: ANION GAP 19 (8-16); BLOOD UREA NITROGEN 21 mg/dl (7-20); CALCIUM 7.5 mg/dl (8.4-10.2); CARBON DIOXIDE 23 mmol/L (21-31); CHLORIDE 99 mmol/L (97-110); CREATININE 2.69 mg/dl (0.61-1.24); GLUCOSE 116 mg/dl (70-220); POTASSIUM 3.1 mmol/L (3.5-5.1); SODIUM 138 mmol/L (135-144)
[2017-10-19] MEDS: POTASSIUM CHLORIDE 50 ML IVPB ×3 (06:50→08:57)
[2017-10-19 08:20] LABS: ANISOCYTOSIS 3+ (0-0); BAND NEUTROPHILS #M 2.6 10^3/ul (0.0-0.6); BAND NEUTROPHILS % (M) 16 % (0-4); BASOPHIL #M 0.1 10^3/ul (0.0-0.0); BASOPHILS % (M) 1 % (0-2); EOSINOPHILS % (M) 1 % (0-7); GIANT THROMBO% (M) 1 % (0-0); HYPOCHROMASIA 1+ (0-0); LYMPHOCYTES #M 2.9 10^3/ul (0.8-2.9); LYMPHOCYTES % (M) 18 % (15-51); MONOCYTE #M 0.9 10^3/ul (0.3-0.9); MONOCYTES % (M) 6 % (0-11); PLATELET ESTIMATE NORMAL; POLYCHROMASIA 2+ (0-0); SEG NEUT #M 9.9 10^3/ul (1.7-7.5); SEGMENTED NEUTROPHILS (M) % 58 % (39-77); SMUDGE%M 2 % (0-0)
[2017-10-19 08:29] LABS: AADO2 Arterial 411.2 mmHg (7.0-24.0); Allen Test ACCEPTAB; Arterial Base Excess -1.2 mmol/L (-3.0-3); Arterial Blood Gas Oxygen Sat 88.8 mmHG (95.0-98.0); Arterial COHb 0.3 % (0.0-3.0); Arterial Fraction of Oxyhgb 88.4 % (93.0-99.0); Arterial HCO3 21.9 mmol/L (22.0-26.0); Arterial MetHb 0.1 % (0.0-1.5); Arterial Total Hemglobin 8.5 g/dl (12.0-18.0); Arterial pCO2 30.3 mmhg (35-45); MODE VENT - AC; Site Right Radial
[2017-10-19] MEDS: RIFAXIMIN 550 MG TAB PO ×2 (08:56→20:06)
[2017-10-19] MEDS: THIAMINE 100 MG TAB PO (08:56)
[2017-10-19] MEDS: LINEZOLID 600 MG/D5W (PMX) 300 ML IVPB ×2 (08:56→20:28)
[2017-10-19] MEDS: MUPIROCIN 2% 22 GM OINT TOP ×2 (08:56→20:07)
[2017-10-19] MEDS: CEFEPIME 2GM/50 ML (PMX) 50 ML IVPB (10:52)
[2017-10-19] MEDS: ALBUMIN HUMAN 25% 100 ML IV ×2 (12:13→19:59)
[2017-10-19] MEDS: metroNIDAZOLE 500 MG/NS (PMX) 100 ML IVPB ×2 (14:51→22:10)
[2017-10-19 16:06] LABS: IMMEDIATE SPIN CROSSMATCH 1 2
[2017-10-19] MEDS: CASPOFUNGIN 35 MG in SOD CHLORIDE 0.9% 250 ML IVPB (17:59)
[2017-10-20] MEDS: PROPOFOL 100 ML IV ×2 (00:35→13:11)
[2017-10-20] MEDS: ALBUMIN HUMAN 25% 100 ML IV ×2 (03:23→19:49)
[2017-10-20] MEDS: LACTULOSE 30ML CUP PO ×3 (05:14→17:38)
[2017-10-20] MEDS: metroNIDAZOLE 500 MG/NS (PMX) 100 ML IVPB ×3 (05:14→23:53)
[2017-10-20] MEDS: PANTOPRAZOLE 40 MG INJ IV ×2 (05:18→17:38)
[2017-10-20 05:42] LABS: ADD MAN DIFF? NO
[2017-10-20 05:47] LABS: BASOPHIL # 0.1 10^3/ul (0.0-0.1); BASOPHILS % 0.2 % (0.0-2.0); EOSINOPHILS # 0.1 10^3/ul (0.0-0.5); EOSINOPHILS % 0.4 % (0.0-7.0); HEMATOCRIT 26.3 % (42.0-52.0); HEMOGLOBIN 9.1 g/dl (14.0-18.0); LYMPHOCYTES # 1.2 10^3/ul (0.8-2.9); LYMPHOCYTES % 5.8 % (15.0-51.0); MEAN CORPUSCULAR HEMOGLOBIN 33.1 pg (29.0-33.0); MEAN CORPUSCULAR HGB CONC 34.6 g/dl (32.0-37.0); MEAN CORPUSCULAR VOLUME 95.6 fl (82.0-101.0); MONOCYTES % 4.6 % (0.0-11.0); NEUTROPHIL # 18.7 10^3/ul (1.6-7.5); POSITIVE DIFF @See below; RED BLOOD COUNT 2.75 10^6/ul (4.70-6.10); RED CELL DISTRIBUTION WIDTH 21.9 % (11.5-14.5)
[2017-10-20 05:47] LABS: PLATELET COUNT 121 10^3/UL (140-415); WHITE BLOOD COUNT 21.5 10^3/ul (4.8-10.8)
[2017-10-20 05:48] LABS: PLATELET COUNT 122 10^3/UL (140-415)
[2017-10-20 06:08] LABS: PROTIME 23.2 Sec (11.9-14.9); PT RATIO 1.8
[2017-10-20 06:09] LABS: PARTIAL THROMBOPLASTIN TIME 56.3 Sec (25.0-35.0); THROMBIN TIME 18.3 SEC (13.8-19.1)
[2017-10-20 06:10] LABS: INR 2.06; PROTIME 23.7 Sec (11.9-14.9); PT RATIO 1.9
[2017-10-20 06:34] LABS: ALANINE AMINOTRANSFERASE 25 IU/L (13-69); ALBUMIN/GLOBULIN RATIO 0.73; ALKALINE PHOSPHATASE 101 IU/L (42-121); ANION GAP 22 (8-16); ASPARTATE AMINO TRANSFERASE 81 IU/L (15-46); BILIRUBIN,INDIRECT 1.9 mg/dl (0-1.1); BILIRUBIN,TOTAL 11.2 mg/dl (0.2-1.3); BLOOD UREA NITROGEN 30 mg/dl (7-20); CALCIUM 7.9 mg/dl (8.4-10.2); CARBON DIOXIDE 18 mmol/L (21-31); CHLORIDE 96 mmol/L (97-110); CREATININE 3.79 mg/dl (0.61-1.24); GLUCOSE 104 mg/dl (70-220); SODIUM 134 mmol/L (135-144); TOTAL PROTEIN 7.1 g/dl (6.1-8.1)
[2017-10-20 06:51] LABS: POTASSIUM 2.3 mmol/L (3.5-5.1)
[2017-10-20] MEDS: POTASSIUM CHLORIDE 50 ML IVPB ×4 (06:53→11:01)
[2017-10-20 07:59] LABS: AMMONIA 70 umol/l (9-30)
[2017-10-20 08:09] LABS: Allen Test ACCEPTAB; Arterial Base Excess -6.3 mmol/L (-3.0-3); Arterial Blood Gas Oxygen Sat 86.4 mmHG (95.0-98.0); Arterial COHb 0.3 % (0.0-3.0); Arterial Fraction of Oxyhgb 86.1 % (93.0-99.0); Arterial HCO3 17.4 mmol/L (22.0-26.0); Arterial MetHb 0.1 % (0.0-1.5); Arterial Total Hemglobin 9.8 g/dl (12.0-18.0); Arterial pCO2 28.4 mmhg (35-45); MODE VENT - AC; Site Right Radial
[2017-10-20] MEDS: LINEZOLID 600 MG/D5W (PMX) 300 ML IVPB ×2 (08:57→20:50)
[2017-10-20] MEDS: THIAMINE 100 MG TAB PO (08:57)
[2017-10-20] MEDS: RIFAXIMIN 550 MG TAB PO ×2 (08:57→20:50)
[2017-10-20] MEDS: MUPIROCIN 2% 22 GM OINT TOP ×2 (08:59→20:50)
[2017-10-20] MEDS: CEFEPIME 2GM/50 ML (PMX) 50 ML IVPB (10:28)
[2017-10-20] MEDS: CASPOFUNGIN 35 MG in SOD CHLORIDE 0.9% 250 ML IVPB (17:40)
[2017-10-20] MEDS: PHENYLephrine 20MG IN 250 ML 250 ML IV (20:49)
[2017-10-20 22:47] LABS: HEPATITIS B SURFACE ANTIBODY NEGATIVE (NEGATIVE)
[2017-10-21] MEDS: LACTULOSE 30ML CUP PO ×4 (00:23→17:36)
[2017-10-21] MEDS: PROPOFOL 100 ML IV ×2 (01:30→13:30)
[2017-10-21] MEDS: metroNIDAZOLE 500 MG/NS (PMX) 100 ML IVPB ×3 (05:14→21:16)
[2017-10-21] MEDS: PANTOPRAZOLE 40 MG INJ IV ×2 (05:20→17:36)
[2017-10-21 08:40] LABS: Allen Test ACCEPTAB; Arterial Base Excess -8.3 mmol/L (-3.0-3); Arterial Blood Gas Oxygen Sat 92.7 mmHG (95.0-98.0); Arterial COHb 0.3 % (0.0-3.0); Arterial Fraction of Oxyhgb 92.3 % (93.0-99.0); Arterial HCO3 15.3 mmol/L (22.0-26.0); Arterial MetHb 0.1 % (0.0-1.5); Arterial Total Hemglobin 10.6 g/dl (12.0-18.0); Arterial pCO2 25.8 mmhg (35-45); MODE VENT - AC; Site Right Radial
[2017-10-21] MEDS: LINEZOLID 600 MG/D5W (PMX) 300 ML IVPB (09:06)
[2017-10-21] MEDS: THIAMINE 100 MG TAB PO (09:06)
[2017-10-21] MEDS: RIFAXIMIN 550 MG TAB PO ×2 (09:06→21:17)
[2017-10-21] MEDS: MUPIROCIN 2% 22 GM OINT TOP ×2 (09:07→21:09)
[2017-10-21 09:19] LABS: ADD MAN DIFF? NO
[2017-10-21 09:21] LABS: WHITE BLOOD COUNT 23.9 10^3/ul (4.8-10.8)
[2017-10-21 09:21] LABS: ABNORMAL IP MESSAGE 1; BASOPHILS % 0.2 % (0.0-2.0); EOSINOPHILS % 0.2 % (0.0-7.0); HEMOGLOBIN 9.2 g/dl (14.0-18.0); LYMPHOCYTES # 1.1 10^3/ul (0.8-2.9); LYMPHOCYTES % 4.6 % (15.0-51.0); MEAN CORPUSCULAR HEMOGLOBIN 32.9 pg (29.0-33.0); MEAN CORPUSCULAR HGB CONC 34.1 g/dl (32.0-37.0); MEAN CORPUSCULAR VOLUME 96.4 fl (82.0-101.0); MEAN PLATELET VOLUME 11.4 fl (7.4-10.4); MONOCYTE # 0.8 10^3/ul (0.3-0.9); MONOCYTES % 3.4 % (0.0-11.0); NEUTROPHIL # 21.4 10^3/ul (1.6-7.5); NEUTROPHILS % 89.3 % (39.0-77.0); PLATELET COUNT 121 10^3/UL (140-415); POSITIVE DIFF @See below; RED CELL DISTRIBUTION WIDTH 21.4 % (11.5-14.5)
[2017-10-21] MEDS ORDERED: VANCOMYCIN IV PER PHARMACY XX (09:30)
[2017-10-21] MEDS: PHENYLephrine 20MG IN 250 ML 250 ML IV ×2 (09:31→14:01)
[2017-10-21] MEDS: LEVOFLOXACIN 500MG/D5W (PMX) 100 ML IVPB (09:39)
[2017-10-21 09:40] LABS: AMMONIA 38 umol/l (9-30)
[2017-10-21 09:40] LABS: ANION GAP 24 (8-16); BLOOD UREA NITROGEN 20 mg/dl (7-20); CALCIUM 7.4 mg/dl (8.4-10.2); CARBON DIOXIDE 16 mmol/L (21-31); CHLORIDE 98 mmol/L (97-110); CREATININE 3.09 mg/dl (0.61-1.24); GLUCOSE 94 mg/dl (70-220); SODIUM 135 mmol/L (135-144)
[2017-10-21 09:47] LABS: POTASSIUM 2.6 mmol/L (3.5-5.1)
[2017-10-21] MEDS: POTASSIUM CHLORIDE 50 ML IVPB ×5 (10:03→23:18)
[2017-10-21] MEDS: CEFEPIME 2GM/50 ML (PMX) 50 ML IVPB (10:54)
[2017-10-21] MEDS: VANCOMYCIN 2 GM in SOD CHLORIDE 0.9% 500 ML IVPB (12:15)
[2017-10-21 14:26] LABS: PROCALCITONIN 0.64 ng/mL (<0.10)
[2017-10-21] MEDS: CASPOFUNGIN 35 MG in SOD CHLORIDE 0.9% 250 ML IVPB (17:36)
[2017-10-21] MEDS: FENTAnyl (DRIP) 1000 mcg/100mL 100 ML IV (18:15)
[2017-10-21] MEDS: ALTEPLASE (CATHFLO) 2 MG INJ CATHETER (21:18)
[2017-10-21] MEDS ORDERED: PHENYLephrine 20MG IN 250 ML 250 ML (23:32)
[2017-10-22] MEDS: LACTULOSE 30ML CUP PO ×4 (00:18→22:19)
[2017-10-22] MEDS: POTASSIUM CHLORIDE 50 ML IVPB ×2 (00:24→07:07)
[2017-10-22] MEDS: PHENYLephrine 80 MG in DEXTROSE 5% 242 ML IV ×5 (00:31→23:08)
[2017-10-22] MEDS: PROPOFOL 100 ML IV ×2 (01:30→13:30)
[2017-10-22 05:31] LABS: ADD MAN DIFF? NO
[2017-10-22] MEDS: PANTOPRAZOLE 40 MG INJ IV ×2 (05:42→16:59)
[2017-10-22] MEDS: metroNIDAZOLE 500 MG/NS (PMX) 100 ML IVPB ×3 (05:42→22:19)
[2017-10-22 05:43] LABS: WHITE BLOOD COUNT 30.9 10^3/ul (4.8-10.8)
[2017-10-22 05:43] LABS: ABNORMAL IP MESSAGE 1; BASOPHIL # 0.1 10^3/ul (0.0-0.1); BASOPHILS % 0.2 % (0.0-2.0); EOSINOPHILS # 0.1 10^3/ul (0.0-0.5); EOSINOPHILS % 0.2 % (0.0-7.0); HEMATOCRIT 27.4 % (42.0-52.0); HEMOGLOBIN 8.6 g/dl (14.0-18.0); LYMPHOCYTES # 2.1 10^3/ul (0.8-2.9); LYMPHOCYTES % 6.7 % (15.0-51.0); MEAN CORPUSCULAR HEMOGLOBIN 33.1 pg (29.0-33.0); MEAN CORPUSCULAR HGB CONC 31.4 g/dl (32.0-37.0); MEAN CORPUSCULAR VOLUME 105.4 fl (82.0-101.0); MEAN PLATELET VOLUME 11.5 fl (7.4-10.4); MONOCYTE # 0.9 10^3/ul (0.3-0.9); NEUTROPHILS % 84.1 % (39.0-77.0); PLATELET COUNT 142 10^3/UL (140-415); POSITIVE DIFF @See below; RED CELL DISTRIBUTION WIDTH 21.7 % (11.5-14.5)
[2017-10-22 05:51] LABS: AMMONIA 72 umol/l (9-30)
[2017-10-22 05:59] LABS: ANION GAP 27 (8-16); BLOOD UREA NITROGEN 22 mg/dl (7-20); CALCIUM 7.1 mg/dl (8.4-10.2); CHLORIDE 94 mmol/L (97-110); GLUCOSE 301 mg/dl (70-220); MAGNESIUM 1.8 mg/dl (1.7-2.5); PHOSPHORUS 9.5 mg/dl (2.5-4.9); POTASSIUM 3.7 mmol/L (3.5-5.1); SODIUM 125 mmol/L (135-144)
[2017-10-22 06:08] LABS: CARBON DIOXIDE 8 mmol/L (21-31)
[2017-10-22 07:04] LABS: CREATININE 4.18 mg/dl (0.61-1.24)
[2017-10-22] MEDS ORDERED: DEXTROSE 50% 50 ML SYRINGE (07:24)
[2017-10-22] MEDS: DEXTROSE 50% 50 ML SYRINGE IV ×2 (07:40→16:13)
[2017-10-22] MEDS: VASOPRESSIN 60 UNIT in DEXTROSE 5% 57 ML IV ×2 (07:45→16:58)
[2017-10-22 08:25] LABS: AADO2 Arterial 557.8 mmHg (7.0-24.0); Allen Test ACCEPTAB; Arterial Base Excess -23.9 mmol/L (-3.0-3); Arterial Blood Gas Oxygen Sat 96.3 mmHG (95.0-98.0); Arterial COHb 0.3 % (0.0-3.0); Arterial Fraction of Oxyhgb 95.6 % (93.0-99.0); Arterial HCO3 7.9 mmol/L (22.0-26.0); Arterial MetHb 0.4 % (0.0-1.5); Arterial Total Hemglobin 9.9 g/dl (12.0-18.0); Arterial pCO2 41.5 mmhg (35-45); MODE VENT - AC; Site Left Radial
[2017-10-22 08:38] LABS: ANION GAP 28 (8-16); BLOOD UREA NITROGEN 22 mg/dl (7-20); CALCIUM 7.6 mg/dl (8.4-10.2); CHLORIDE 99 mmol/L (97-110); GLUCOSE 92 mg/dl (70-220); SODIUM 131 mmol/L (135-144)
[2017-10-22] MEDS ORDERED: NA BICARBONATE 8.4% 50 ML SYG (08:45)
[2017-10-22 08:53] LABS: CREATININE 4.16 mg/dl (0.61-1.24)
[2017-10-22 08:55] LABS: CARBON DIOXIDE 8 mmol/L (21-31)
[2017-10-22] MEDS: NA BICARBONATE 8.4% 50 ML SYG IV ×2 (09:04→13:58)
[2017-10-22] MEDS: MUPIROCIN 2% 22 GM OINT TOP ×2 (09:05→21:00)
[2017-10-22] MEDS: RIFAXIMIN 550 MG TAB PO ×2 (10:46→22:20)
[2017-10-22] MEDS: THIAMINE 100 MG TAB PO (10:47)
[2017-10-22] MEDS: CEFEPIME 2GM/50 ML (PMX) 50 ML IVPB (10:47)
[2017-10-22] MEDS: SODIUM BICARBONATE (IV ADD) 100 MEQ in DEXTROSE 5%-0.45% NACL 900 ML IV (11:41)
[2017-10-22] MEDS ORDERED: GLUCOSE GEL 15 GRAM TUBE BUCCAL (12:00)
[2017-10-22] MEDS ORDERED: GLUCOSE GEL 15 GRAM TUBE PO ×2 (12:00)
[2017-10-22] MEDS ORDERED: GLUCAGON 1 MG INJ IM (12:00)
[2017-10-22] MEDS ORDERED: DEXTROSE 50% 50 ML SYRINGE IV (12:00)
[2017-10-22] MEDS: ACCU-CHEK XX ×5 (12:30→21:00)
[2017-10-22 14:00] LABS: AADO2 Arterial 565.4 mmHg (7.0-24.0); Allen Test ACCEPTAB; Arterial Blood Gas Oxygen Sat 95.9 mmHG (95.0-98.0); Arterial COHb 0.2 % (0.0-3.0); Arterial Fraction of Oxyhgb 95.3 % (93.0-99.0); Arterial HCO3 7.8 mmol/L (22.0-26.0); Arterial MetHb 0.4 % (0.0-1.5); Arterial Total Hemglobin 9.7 g/dl (12.0-18.0); Arterial pCO2 40.5 mmhg (35-45); MODE VENT - AC; Site Right Radial
[2017-10-22] MEDS ORDERED: SODIUM BICARBONATE (IV ADD) 100 MEQ in DEXTROSE 10% 1,000 ML IV (14:00)
[2017-10-22] MEDS: SODIUM BICARBONATE (IV ADD) 100 MEQ in DEXTROSE 10% 1,000 ML IV (15:39)
[2017-10-22] MEDS: CASPOFUNGIN 35 MG in SOD CHLORIDE 0.9% 250 ML IVPB (18:11)
[2017-10-22] MEDS: PHYTONADIONE 10 MG/ML INJ SC (22:20)
[2017-10-23] MEDS ORDERED: [UNRECOGNIZED DRUG - OTHER] IV
[2017-10-23] MEDS ORDERED: SODIUM CHLORIDE IV
[2017-10-23] MEDS ORDERED: SODIUM BICARBONATE IV
[2017-10-23] MEDS: ACCU-CHEK XX ×4 (01:00→16:04)
[2017-10-23] MEDS: PROPOFOL 100 ML IV ×2 (01:30→12:55)
[2017-10-23] MEDS: PHENYLephrine 80 MG in DEXTROSE 5% 242 ML IV ×3 (02:28→16:25)
[2017-10-23] MEDS: PANTOPRAZOLE 40 MG INJ IV (05:25)
[2017-10-23] MEDS: metroNIDAZOLE 500 MG/NS (PMX) 100 ML IVPB ×2 (05:25→16:17)
[2017-10-23] MEDS: LACTULOSE 30ML CUP PO ×2 (05:25→16:17)
[2017-10-23 05:54] LABS: WHITE BLOOD COUNT 41.6 10^3/ul (4.8-10.8)
[2017-10-23 05:54] LABS: ABNORMAL IP MESSAGE 1; HEMATOCRIT 24.2 % (42.0-52.0); HEMOGLOBIN 7.3 g/dl (14.0-18.0); MEAN CORPUSCULAR HEMOGLOBIN 33.5 pg (29.0-33.0); MEAN CORPUSCULAR HGB CONC 30.2 g/dl (32.0-37.0); NUCLEATED RED BLOOD CELLS% 0.8 /100WBC (0.0-0.0); PLATELET COUNT 73 10^3/UL (140-415); POSITIVE DIFF @See below; RED BLOOD COUNT 2.18 10^6/ul (4.70-6.10); RED CELL DISTRIBUTION WIDTH 21.7 % (11.5-14.5)
[2017-10-23 05:58] LABS: ADD MAN DIFF? YES
[2017-10-23 06:10] LABS: PROTIME 58.5 Sec (11.9-14.9); PT RATIO 4.6
[2017-10-23 06:28] LABS: ALANINE AMINOTRANSFERASE 267 IU/L (13-69); ALBUMIN 1.9 g/dl (3.3-4.9); ALBUMIN/GLOBULIN RATIO 0.65; ALKALINE PHOSPHATASE 121 IU/L (42-121); ANION GAP 34 (8-16); BILIRUBIN,INDIRECT 1.1 mg/dl (0-1.1); BILIRUBIN,TOTAL 8.9 mg/dl (0.2-1.3); BLOOD UREA NITROGEN 23 mg/dl (7-20); CALCIUM 6.3 mg/dl (8.4-10.2); CHLORIDE 89 mmol/L (97-110); POTASSIUM 4.3 mmol/L (3.5-5.1); SODIUM 128 mmol/L (135-144); TOTAL PROTEIN 4.8 g/dl (6.1-8.1)
[2017-10-23] MEDS ORDERED: NA BICARBONATE 8.4% 50 ML SYG (07:00)
[2017-10-23 07:05] LABS: CARBON DIOXIDE 9 mmol/L (21-31); CREATININE 4.68 mg/dl (0.61-1.24); GLUCOSE 446 mg/dl (70-220)
[2017-10-23 07:27] LABS: VANCOMYCIN,RANDOM 15.8 ug/ml
[2017-10-23 07:30] LABS: ASPARTATE AMINO TRANSFERASE 3411 IU/L (15-46)
[2017-10-23 07:45] LABS: INR 6.37
[2017-10-23] MEDS: VASOPRESSIN 60 UNIT in DEXTROSE 5% 57 ML IV (08:00)
[2017-10-23] MEDS: SODIUM BICARBONATE (IV ADD) 100 MEQ in DEXTROSE 10% 1,000 ML IV (09:46)
[2017-10-23] MEDS: RIFAXIMIN 550 MG TAB PO (09:46)
[2017-10-23] MEDS: CEFEPIME 2GM/50 ML (PMX) 50 ML IVPB (09:46)
[2017-10-23] MEDS: MUPIROCIN 2% 22 GM OINT TOP (09:46)
[2017-10-23] MEDS: THIAMINE 100 MG TAB PO (09:47)
[2017-10-23 10:25] LABS: ANISOCYTOSIS 2+ (0-0); BAND NEUTROPHILS #M 3.7 10^3/ul (0.0-0.6); BAND NEUTROPHILS % (M) 9 % (0-4); ERYTHROBLAST% (NRBC) (M) 1 % (0-0); LYMPHOCYTES #M 6.6 10^3/ul (0.8-2.9); LYMPHOCYTES % (M) 16 % (15-51); MONOCYTE #M 1.2 10^3/ul (0.3-0.9); MONOCYTES % (M) 3 % (0-11); PLATELET ESTIMATE SIG DECREASED; POIKILOCYTOSIS 3+ (0-0); POLYCHROMASIA 3+ (0-0); REACTIVE LYMPHOCYTES #M 0.4 10^3/ul (0.0-0.0); REACTIVE LYMPHOCYTES% (M) 1 % (0-0); SEG NEUT #M 31.1 10^3/ul (1.7-7.5); SEGMENTED NEUTROPHILS (M) % 71 % (39-77); SMUDGE%M 4 % (0-0)
[2017-10-23] MEDS: LEVOFLOXACIN 250MG/D5W (PMX) 50 ML IVPB (10:30)
[2017-10-23] MEDS: VANCOMYCIN 1 GM 250 ML IVPB (12:27)
[2017-10-23] MEDS ORDERED: SOD CHLORIDE 0.9% 250 ML IV* (15:09)
[2017-10-23] MEDS ORDERED: PHENYLephrine 20MG IN 250 ML 250 ML (15:30)
[2017-10-23] MEDS ORDERED: DEXTROSE 50% 50 ML SYRINGE (16:16)
[2017-10-23 16:49] LABS: IMMEDIATE SPIN CROSSMATCH 1 1
== END 2017-10-23 17:23 | disposition expired | DRG 432 ==
LOC: E/R 18:41 → ICU 10-16 08:45 → MS2 10-07 15:31
PROC: 0W9G30Z Drainage of Peritoneal Cavity with Drainage Device, Percutaneous Approach (ICD-10-PCS; principal; 2017-10-07)
PROC: 5A1D70Z Performance of Urinary Filtration, Intermittent, Less than 6 Hours Per Day (ICD-10-PCS; 2017-10-07)
PROC: 02HV33Z Insertion of Infusion Device into Superior Vena Cava, Percutaneous Approach (ICD-10-PCS; 2017-10-16)
PROC: 06HM33Z Insertion of Infusion Device into Right Femoral Vein, Percutaneous Approach (ICD-10-PCS; 2017-10-17)
PROC: 30233N1 Transfusion of Nonautologous Red Blood Cells into Peripheral Vein, Percutaneous Approach (ICD-10-PCS; 2017-10-19)
PROC: 5A1955Z Respiratory Ventilation, Greater than 96 Consecutive Hours (ICD-10-PCS; 2017-10-21)
PROC: 0BH17EZ Insertion of Endotracheal Airway into Trachea, Via Natural or Artificial Opening (ICD-10-PCS; 2017-10-21)
DX: K70.31 Alcoholic cirrhosis of liver with ascites (principal); K72.00 Acute and subacute hepatic failure without coma; K70.40 Alcoholic hepatic failure without coma; R65.21 Severe sepsis with septic shock; N17.0 Acute kidney failure with tubular necrosis; J96.01 Acute respiratory failure with hypoxia; J69.0 Pneumonitis due to inhalation of food and vomit; A41.9 Sepsis, unspecified organism; D68.9 Coagulation defect, unspecified; N18.6 End stage renal disease; F10.231 Alcohol dependence with withdrawal delirium; K92.2 Gastrointestinal hemorrhage, unspecified; E83.42 Hypomagnesemia; E87.6 Hypokalemia; Z66 Do not resuscitate; Z72.0 Tobacco use; E66.9 Obesity, unspecified; Z68.35 Body mass index [BMI] 35.0-35.9, adult; I86.8 Varicose veins of other specified sites; R19.7 Diarrhea, unspecified
CPT/HCPCS: 36415; 36430; 36569; 36600; 71045; 74018; 76705; 76937; 80048; 80053; 80202; 80307; 81001; 82140; 82270; 82607; 82728; 82746; 82803; 82962; 83540; 83690; 83735; 84100; 84132; 84145; 84484; 85025; 85045; 85049; 85610; 85670; 85730; 86704; 86706; 86709; 86803; 86850; 86900; 86901; 86920; 87040; 87070; 87081; 87086; 87340; 87400; 89220; 90686; 90935; 93005; 94002; 94003; 94770; 96365; 96366; 96375; 99285-25; J1940